=== PATIENT | female | born 1980 | race Caucasian/White ===

== ENCOUNTER 2020-01-11 13:41 | Outpatient (CLI) | payer MEDICARE, MEDICAID, SELFPAY ==
--- NOTE | 2020-01-11 13:49 | MR_ITS ---
WS: [id number] MRI BRAIN WITH HIGH-RESOLUTION IMAGING THROUGH THE INTERNAL AUDITORY CANALS WITHOUT AND WITH CONTRAST HISTORY: TINNITUS LEFT EAR COMPARISON: None available. TECHNIQUE: Multiplanar, multisequence imaging is performed through the brain. Additional 3 mm imaging performed in multiple planes through the internal auditory canal. Postcontrast imaging with 17 ml's of Prohance. No acute intracranial hemorrhage, midline shift, edema or mass effect. No significant atrophy or chronic ischemic changes. Normal manning-white matter differentiation. Ventricles and extra-axial spaces are normal. No inferior displacement of cerebellar tonsils. Clivus and pituitary gland are normal. Internal and external auditory canals: Unremarkable. Cranial nerves VII and VIII complexes: Unremarkable. No enhancement or mass. Cerebellopontine angles: Normal. Paranasal sinuses: Normal. Mastoid air cells: Normal. Calvarium and scalp: Normal. Visualized [place] and dural venous sinuses demonstrate no abnormality. MR/MR iac's wo/w con* [id number] IMPRESSION: Normal MRI IACs.
== END 2020-01-11 13:42 | disposition home or self-care (01) ==
LOC: RADSHAW 13:47
PROVIDERS: PCP Family Medicine; Visit Provider Specialist
DX: H93.12 Tinnitus, left ear (principal)
CPT/HCPCS: 70553; A9579

== ENCOUNTER → 2022-12-13 10:21 | Outpatient (BNVA) | payer MEDICARE, MEDICAID, OTHER, SELFPAY | PROVIDERS: PCP Family Medicine; Visit Provider Podiatrist Foot & Ankle Surgery | DX: B35.1 Tinea unguium (principal); G62.9 Polyneuropathy, unspecified; E11.42 Type 2 diabetes mellitus with diabetic polyneuropathy; M21.612 Bunion of left foot; M21.611 Bunion of right foot | CPT/HCPCS: 99203 ==

== ENCOUNTER → 2023-04-01 09:06 | Outpatient (BNVA) | payer MEDICARE, MEDICAID, SELFPAY | PROVIDERS: PCP Family Medicine; Visit Provider Podiatrist Foot & Ankle Surgery | DX: B35.1 Tinea unguium (principal); G62.9 Polyneuropathy, unspecified; E11.42 Type 2 diabetes mellitus with diabetic polyneuropathy; M21.611 Bunion of right foot; M21.612 Bunion of left foot | CPT/HCPCS: 99213 ==

== ENCOUNTER 2023-09-22 13:24 | Inpatient (IN) | payer MEDICARE, MEDICAID, SELFPAY ==
--- NOTE | 2023-09-22 13:25 | W.ED.PSYCHS ---
HPI - Psych General: Chief Complaint: Psychiatric Symptoms Stated Complaint: si Time Seen by Provider: 09/22/23 13:24 Source: patient Mode of arrival: ambulatory Limitations: no limitations History of Present Illness: Patient is a 43-year-old female who presents to the ED today at the request of her psychiatric counselor for worsening depression and suicidal ideations. Patient tells me that she has a lot going on right now. She states she is struggling with some coworkers at work as well as within her residential facility. She states she has ran into some financial issues regarding her Social Security. Patient feels like her depression is worsening and she is now starting to have some suicidal thoughts. No specific plan. She has a longstanding history of schizophrenia. She chronically has hallucinations. MD complaint: suicidal ideation, feels depressed and other (hallucinations ) Onset (ago): day(s) Associated symptoms: Reports auditory hallucinations, visual hallucinations, depression and suicidal ideation; Deny homicidal ideation Review of Systems Const: Denies: fever(s) or chills Card: Denies: chest pain, palpitations, lightheadedness or syncope Resp: Denies: dyspnea GI: Denies: abdominal pain, nausea, vomiting or diarrhea Skin/Breast: Denies: rash Neuro: Denies: headache(s) Psych: Reports: anxiety, depression, hopelessness, visual hallucinations, auditory hallucinations and suicidal ideation; Denies: homicidal ideation [facility] ED PFSH: Medical History Depression Lives in assisted living facility Intellectual disability Anxiety PTSD (post-traumatic stress disorder) Psychiatric care Physical Exam Const: COMMON NORMALS: no acute distress, patient oriented x3, alert and well nourished GENERAL APPEARANCE: cooperative and well kempt Resp: COMMON NORMALS: normal respiratory effort and clear to auscultation bilaterally AUSCULTATION: clear to auscultation bilaterally Cardio: COMMON NORMALS: regular rate and regular rhythm RATE: regular rate RHYTHM: regular rhythm Neuro: COMMON NORMALS: patient oriented x3 SENSORIUM/ORIENTATION: Yes alert Psych: COMMON NORMALS: mental status grossly normal, Normal thought process present, cooperative, normal affect, speech normal and activity/motor behavior normal APPEARANCE: Yes grossly normal and Yes well kempt ATTITUDE: Yes calm ACTIVITY/MOTOR BEHAVIOR: Yes appropriate eye contact and No psychomotor agitation SPEECH: Yes normal speech MOOD & AFFECT: Yes tearful THOUGHT PROCESS: Normal thought process present THOUGHT CONTENT: Yes Normal thought content present and Yes Suicidality present ATTENTION/CONCENTRATION: Yes attention grossly intact MEMORY/COGNITION: Yes memory grossly intact and Yes cognition grossly intact INSIGHT: Good insight present (Psych) JUDGEMENT: Good judgement present (Psych) Course Consultations: Consultation #1: Dr. Mast-accepts to NPU Vital Signs: Vital signs: Vital Signs Temperature 98.2 F 09/22/23 14:54 Pulse Rate 73 09/22/23 14:54 Blood Pressure 142/95 09/22/23 14:54 Pulse Oximetry 100 09/22/23 14:54 Oxygen Delivery Me thod Room Air 09/22/23 13:26 MDM - Psych Medical Decision Making Patient will be admitted to NPU to Dr. Mast for treatment and evaluation of her worsening depression, suicidal ideations, hallucinations. She is voluntary at this time. Lab Data 09/22/23 13:39 09/22/23 13:39 Laboratory Results WBC 13.93 10^3/uL (3.29-11.43) H 09/22/23 13:39 RBC 4.95 10^6/uL (3.85-5.65) 09/22/23 13:39 Hgb 13.90 g/dL (11.27-16.99) 09/22/23 13:39 Hct 43.4 % (36-47) 09/22/23 13:39 MCV 87.7 fl (85-98) 09/22/23 13:39 MCH 28.1 pg (27-33) 09/22/23 13:39 MCHC 32.0 g/dL (30-55) 09/22/23 13:39 RDW 14.5 % (12.1-15.1) 09/22/23 13:39 Plt Count 351 10^3/cmm (157-399) 09/22/23 13:39 MPV 11.3 fL (7.4-10.4) H 09/22/23 13:39 Neut % (Auto) 56.5 % 09/22/23 13:39 Lymph % (Auto) 35.4 % 09/22/23 13:39 [place] % (Auto) 6.2 % 09/22/23 13:39 Eos % (Auto) 1.3 % 09/22/23 13:39 Baso % (Auto) 0.4 % 09/22/23 13:39 Neut # (Auto) 7.86 10^3/uL (1.8-7.7) H 09/22/23 13:39 Lymph # (Auto) 4.9 10^3/uL (0.8-4.8) H 09/22/23 13:39 [place] # (Auto) 0.9 10^3/uL (0.2-0.9) 09/22/23 13:39 Eos # (Auto) 0.2 10^3/uL (0.0-0.8) 09/22/23 13:39 Baso # (Auto) 0.1 10^3/uL (0.0-0.1) 09/22/23 13:39 Nucleated RBC % (auto) 0 % 09/22/23 13:39 Nucleated RBCs # 0.0 /100WBC 09/22/23 13:39 Sodium 139 mmol/L (136-145) 09/22/23 13:39 Potassium 5.4 mmol/L (3.5-5.1) H 09/22/23 13:39 Chloride 102 mmol/L (98-107) 09/22/23 13:39 Carbon Dioxide 25 mmol/L (22-29) 09/22/23 13:39 Anion Gap 17.4 (5-19) 09/22/23 13:39 BUN 17 mg/dL (6-20) 09/22/23 13:39 Creatinine 0.7 mg/dL (0.5-0.9) 09/22/23 13:39 GFR Calculation 90.5 mL/min (90-130) 09/22/23 13:39 Glucose 95 mg/dL (65-115) 09/22/23 13:39 Calculated Osmolality 289 mOsm/kg (285-295) 09/22/23 13:39 Calcium 9.8 mg/dL (8.5-10.5) 09/22/23 13:39 Total Bilirubin 0.2 mg/dL (0.15-1.2) 09/22/23 13:39 AST 26 U/L (0-32) 09/22/23 13:39 ALT 29 U/L (0-33) 09/22/23 13:39 Alkaline Phosphatase 131 U/L (35-105) H 09/22/23 13:39 Total Protein 7.6 g/dL (6.6-8.7) 09/22/23 13:39 Albumin 4.5 g/dL (3.5-5.2) 09/22/23 13:39 Globulin 3.1 g/dL (1.3-4.6) 09/22/23 13:39 HCG, Qual Negative (Negative) 09/22/23 13:39 Salicylates < 0.3 mg/dL (3-10) L 09/22/23 13:39 Urine Opiates Screen Negative ng/mL (Negative) 09/22/23 13:31 Acetaminophen < 5.0 ug/mL (10-30) L 09/22/23 13:39 Ur Barbiturates Screen Negative ng/mL (Negative) 09/22/23 13:31 Ur Phencyclidine Scrn Negative ng/mL (Negative) 09/22/23 13:31 Ur Amphetamines Screen Negative ng/mL (Negative) 09/22/23 13:31 U Benzodiazepines Scrn Negative ng/mL (Negative) 09/22/23 13:31 Urine Cocaine Screen Negative ng/mL (Negative) 09/22/23 13:31 U Marijuana (THC) Screen Negative ng/mL (Negative) 09/22/23 13:31 Ethyl Alcohol < 10 mg/dL (0-10) 09/22/23 13:39 No radiology studies performed this visit Discharge Plan Discharge Patient Disposition: Admitted As Inpatient Admit Provider: Jose Mast Clinical Impression: Depression, Suicidal ideation Condition: Stable Coding Level of Care Code ED Twisthand for Melvi Adame
[2023-09-22 13:26] VITALS: BP 142/95; PULSE 73; TEMP 36.8; O2SAT 100; BMI 33.0
[2023-09-22 13:49] LABS: Basophils # 0.1 10^3/uL (0.0-0.1); Basophils % 0.4 %; Eosinophils # 0.2 10^3/uL (0.0-0.8); Eosinophils % 1.3 %; Hematocrit 43.4 % (36-47); Lymphocytes # 4.9 10^3/uL (0.8-4.8); Lymphocytes % 35.4 %; Mean Corpuscular Hemoglobin 28.1 pg (27-33); Mean Corpuscular Volume 87.7 fl (85-98); Mean Platelet Volume 11.3 fL (7.4-10.4); Monocytes # 0.9 10^3/uL (0.2-0.9); Monocytes % 6.2 %; Neutrophils # 7.86 10^3/uL (1.8-7.7); Neutrophils % 56.5 %; Nucleated Red Blood Cells % 0 %; Platelet Count 351 10^3/cmm (157-399); Red Blood Count 4.95 10^6/uL (3.85-5.65); Red Cell Distribution Width 14.5 % (12.1-15.1); White Blood Count 13.93 10^3/uL (3.29-11.43)
[2023-09-22 13:52] LABS: Amphetamines Screen Urine Negative (Negative); Barbiturates Screen Urine Negative (Negative); Benzodiazepines Screen Urine Negative (Negative); Cocaine Screen Urine Negative (Negative); Opiate Screen Urine Negative (Negative); PCP Screen Urine Negative (Negative); THC Screen Urine Negative (Negative)
[2023-09-22 14:02] LABS: Alanine Aminotransferase 29 U/L (0-33); Albumin Level 4.5 g/dL (3.5-5.2); Alkaline Phosphatase 131 U/L (35-105); Aspartate Amino Transferase 26 U/L (0-32); Blood Urea Nitrogen 17 mg/dL (6-20); Calcium 9.8 mg/dL (8.5-10.5); Carbon Dioxide 25 mmol/L (22-29); Chloride 102 mmol/L (98-107); Creatinine Clr Calc Pharmacy 120.5533; Globulin 3.1 g/dL (1.3-4.6); Glomerular Filtration Rate 90.5 mL/min (90-130); Glucose 95 mg/dL (65-115); Osmolality Calculated 289 mOsm/kg (285-295); Sodium 139 mmol/L (136-145); Total Bilirubin 0.2 mg/dL (0.15-1.2); Total Protein 7.6 g/dL (6.6-8.7)
[2023-09-22 14:04] LABS: Acetaminophen < 5.0 ug/mL (10-30); Alcohol Level < 10 mg/dL (0-10); Anion Gap 17.4 (5-19); Potassium 5.4 mmol/L (3.5-5.1); Salicylate < 0.3 mg/dL (3-10)
[2023-09-22 14:05] LABS: HCG, Serum Qual Negative (Negative)
--- NOTE | 2023-09-22 14:32 | PC.PHAR ---
PT IS FROM [facility]
[2023-09-22 14:54] VITALS: BP 142/95; BP 142/96; PULSE 106; PULSE 73; RESP 16; TEMP 36.8; TEMP 36.9; O2SAT 100; O2SAT 97
--- NOTE | 2023-09-22 14:55 | PC.NURSE ---
Transported to NPU Patient transported to NPU at this time via wheelchair by this nurse and Drea Soto RN. Name and verified prior to transfer. Patient introduced to the PATIENT SERVICES REPRESENTATIVE and charge nurse in NPU. No issues during transfer.
[2023-09-22] MEDS: acetaminophen 325 mg Tablet 650 MG PO ×2 (16:47→22:32)
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
[2023-09-22 19:48] LABS: Glucose Point of Care 109 mg/dL (70-110)
[2023-09-22] MEDS: ibuprofen 600 mg Tablet PO (20:47)
[2023-09-22 22:00] VITALS: BP 103/66; PULSE 71; RESP 18; TEMP 37.2; O2SAT 97
[2023-09-22] MEDS: trazodone 50 mg Tablet PO (22:32)
[2023-09-23] MEDS: ibuprofen 600 mg Tablet PO (05:07)
[2023-09-23 06:00] VITALS: BP 128/94; PULSE 110; RESP 18; TEMP 36.5; O2SAT 98
[2023-09-23] MEDS: blistex lip oint 7 gm Tube 1 APPLIC TOPICAL (07:37)
[2023-09-23 07:47] LABS: Glucose Point of Care 104 mg/dL (70-110)
[2023-09-23] MEDS: acetaminophen 325 mg Tablet 650 MG PO ×2 (08:57→17:26)
--- NOTE | 2023-09-23 09:30 | PC.NURSE ---
During assessmnt, patient stated that she is having life stressors that is causing her to feel depressed and have suicidal thoughts. Patient says that on the unit, she is not having SI because she has people she can talk to (staff and other patients), whereas at [place], she is isolated. Patient endorses occassional AVH, no command voices.
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
[2023-09-23] MEDS: sertraline 100 mg Tablet 200 MG PO (12:38)
[2023-09-23 12:40] LABS: Glucose Point of Care 136 mg/dL (70-110)
[2023-09-23 13:54] VITALS: BP 136/101; PULSE 111; RESP 18; TEMP 37; O2SAT 90
[2023-09-23] MEDS: gabapentin 300 mg Capsule PO ×2 (14:00→20:44)
[2023-09-23] MEDS: OLANZapine 5 mg ODT PO (16:42)
[2023-09-23] MEDS: sertraline 50 mg Tablet PO (16:42)
--- NOTE | 2023-09-23 17:13 | PC.NURSE ---
Patient reporting a feeling of panic and dizziness. This nurse checked VS. VS were 164/101, [place] 73, 100% RA, 16 RR. This nurse administered zyprexa 5mg ODT. Patient tearful, stating that she recently lost a friend, she is lonely, and that she has prayed for years for somebody to love her. This nurse used therapeutic listening techniques. patient was able to calm down. Will continue to monitor patient. Patient states that she has a hx of high blood pressure; per patient medication list faxed from Dr. Dooley office, patient is not currently on a HTN medication. Dr. Mast notified.
[2023-09-23] MEDS: famotidine 20 mg Tablet 40 MG PO (17:25)
--- NOTE | 2023-09-23 17:30 | ECG_ITS ---
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 Measurements Intervals [place] Rate: 72 P: 61 MA: 131 QRS: 42 QRSD: 94 T: 22 QT: 382 QTc: 420 Interpretive Statements SINUS RHYTHM POSSIBLE LEFT ATRIAL ENLARGEMENT [-0.1mV P-WAVE IN V1/V2] NONSPECIFIC T-WAVE ABNORMALITY No previous ECG available for comparison Electronically Signed On 09-23-2023 23:50:03 CDT by Chastity Mackay M.D. [id number]
--- NOTE | 2023-09-23 17:31 | PC.NURSE ---
Patient reporting chest pain located substernally that radiates down left arm. Dr. Mast notified. This nurse ordered stat EKG, troponin series, and nitro stat 0.4mg per Dr. Mast orders. Patient currently in dayroom having dinner.
--- NOTE | 2023-09-23 17:44 | PC.NURSE ---
Dr. Mast told this nurse to restart patient'slisnopril-hctz 20-12.5 that is in her EMar; patient had a 5-day supply filled on 08/28/23. This nurse asked to give now or hold, Dr. Mast stated, wait till later, maybe not tomorrow.
[2023-09-23] MEDS: nitroglycerin 0.4 mg sublingual Tablet 0.400000000000000022 MG SUBLINGUAL (18:01)
--- NOTE | 2023-09-23 18:08 | PC.NURSE ---
Patient's BP at 1801: 170/98. Patient reporting chest pain. Administered nitrostat 0.4mg ODT to patient. Patient's blood taken by lab during this time. This nurse called RT to check on status of EKG.
--- NOTE | 2023-09-23 18:23 | PC.NURSE ---
Patient's BP checked at 1817 following bedside EKG. VS: 131/84, 99% RA, HR 74. Patient reports decreased chest pain.
[2023-09-23 18:46] LABS: Troponin(5th) Baseline < 6 ng/L (0-10)
--- NOTE | 2023-09-23 19:30 | ECG_ITS ---
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 Measurements Intervals [place] Rate: 82 P: 47 TN: 121 QRS: 34 QRSD: 94 T: 34 QT: 392 QTc: 458 Interpretive Statements SINUS RHYTHM POSSIBLE RIGHT VENTRICULAR CONDUCTION DELAY [RSR (QR) IN V1/V2] Compared to ECG 09/23/2023 18:13:44 T-wave abnormality no longer present Electronically Signed On 09-25-2023 0:14:41 CDT by Chastity Mackay M.D. [id number]
[2023-09-23 19:44] VITALS: BP 130/78; PULSE 75; RESP 18; TEMP 36.4; O2SAT 100
[2023-09-23 20:40] LABS: Glucose Point of Care 138 mg/dL (70-110)
[2023-09-23] MEDS: quetiapine 25 mg Tablet 100 MG PO (20:44)
[2023-09-23 21:15] LABS: Troponin 5 2HR Delta 0.00001 ABS# (0-10)
--- NOTE | 2023-09-24 00:24 | PC.RESP ---
RT went into room to do scheduled EKG, patient refused to turn on her back, stating it hurt to lie down flat on back. Patient also would not put arms down to her side. Did not allow EKG to be performed.
[2023-09-24 01:09] LABS: Troponin 5 6HR Delta 0.00001 ng/L (0-12)
[2023-09-24 06:00] VITALS: BP 152/95; PULSE 77; RESP 17; TEMP 36.9; O2SAT 98
[2023-09-24] MEDS: ibuprofen 600 mg Tablet PO ×2 (06:31→21:36)
[2023-09-24 07:53] LABS: Glucose Point of Care 94 mg/dL (70-110)
[2023-09-24] MEDS: acetaminophen 325 mg Tablet 650 MG PO ×2 (09:09→18:22)
[2023-09-24] MEDS: hydroCHLOROthiazide 25 mg Tablet 12.5 MG PO (09:09)
[2023-09-24] MEDS: lisinopril 20 mg Tablet PO (09:09)
[2023-09-24] MEDS: polyethylene glycol 3350 Pkt 17 gm PO (09:10)
[2023-09-24] MEDS: gabapentin 300 mg Capsule PO ×3 (09:10→21:37)
[2023-09-24] MEDS: famotidine 20 mg Tablet 40 MG PO ×2 (09:10→18:23)
[2023-09-24] MEDS: sertraline 100 mg Tablet 250 MG PO (09:10)
[2023-09-24] MEDS: hyDROXYzine 25 mg Capsule 50 MG PO ×2 (09:11→21:36)
--- NOTE | 2023-09-24 09:41 | PC.NURSE ---
UP IN DAY ROOM EATING BREAKFAST. DENIES SI/HI AND AVH AT THIS TIME. REPORTS CHRONIC PAIN, I THINK ITS FIBROMYALGIA. PT IS ON SCHEDULED TYLENOL AND DID RECEIVE IT THIS MORNING, RATES PAIN EVERYWHERE /10. REPORTS SHE SLEPT WELL LAST NIGHT. RATES DEPRESSION 10 AND ANXIETY 2/10. PT THEN CAME UP TO NURSES STATION 30 MINUTES LATES REPORTING ANXIETY /10 AND REQUESTING PRN MEDS PLEASE. PT WAS GIVEN VISTARIL 50 MG ORDERED FOR INCREASED ANXIETY. PT IS PLEASANT AND COOPERATIVE, IS OBSERVED TO HAVE SOMATIC BEHAVIORS AT TIMES. PT IS INTERACTIVE WITH PEERS AND STAFF. ALL QUESTIONS ANSWERED AND SUPPORT VOICED.
[2023-09-24 14:00] VITALS: BP 128/81; PULSE 81; RESP 16; TEMP 36.8; O2SAT 99
--- NOTE | 2023-09-24 15:01 | P.NPUPN_ITS ---
Subjective NPU 2 Subjective: Patient presented today reporting that she was feeling a bit better. She reports that she is starting to have optimism about things moving forward. She reports that the medication increases have been effective and we discussed working with the social work team with likely discharge in the next 48 hours. She denied any side effects of the medication. Mental Status Exam 2 MSE Comments: This is an obese white female in hospital scrubs with adequate grooming and eye contact. No abnormal movements except for mild psychomotor retardation. Cooperative with exam in mild to moderate distress. Speech was decreased rate and volume. Mood described a little better, Affect congruent. Thought process organized. Thought content: Patient denied suicidal or homicidal ideation, there are no delusions reported or noted, she denied any auditory or visual hallucinations. She reports having episodes of acting out due to stress and pain. She also reports having problems with memory, which she has to reteach herself how to use her cell phone. She also reports having a lot of crying, sadness, and spending most of her time in her room. She also reports having problems with OCD and paranoia. Attention and concentration appeared intact and memory was mostly reliable but none were formally tested. She is alert and oriented x3. Insight and judgment appear limited impulse control appears impaired. Intellectual ability appears limited. Vitals/I&O/Wt Last Vital Signs Temp 98.3 F 09/24/23 14:00 Pulse 81 09/24/23 14:00 Resp 16 09/24/23 14:00 BP 128/81 09/24/23 14:00 Pulse Ox 99 09/24/23 14:00 O2 Del Method Room Air 09/24/23 06:00 Data NPU 09/22/23 13:39 09/22/23 13:39 A&P Assessment and plan (1) PTSD (post-traumatic stress disorder): (2) Anxiety: (3) Lives in assisted living facility: (4) Depression: (5) Suicidal ideation: (6) Borderline intellectual functioning: Plan This is a 43-year-old white female with a long history of mental health issues and previous hospitalization last time here was about 12 years ago. She presented to her recent outpatient appointment in the past couple of weeks reporting that she is still struggling with her depression and suicidal thoughts and the adjustment of medication did not prevent her continued decompensation leading to this hospitalization. 1. Continue current medication except, increase Zoloft to 250 mg p.o. daily and Seroquel to 100 mg p.o. nightly. 2. Continue every 15 minute checks for safety. 3. Encourage individual, group and milieu therapy. 6. Obtain collateral information. Involuntary Hold Information 2 96 Hour Hold: 96 Hour Involuntary Admission: No Attestations NPU 2 Medical Necessity Statement*: Inpatient hospitalization is medically necessary and the clinically appropriate intervention at this time. We will monitor medications and make changes as indicated. Likely length of stay 2-4 days. Coding Level of Care Code Acute Code for g Fwd Diagnoses PTSD (post-traumatic stress disorder) F43.10 Anxiety F41.9 Lives in assisted living facility Z59.3 Depression F32.A Suicidal ideation R45.851 Borderline intellectual functioning R41.83
[2023-09-24 19:59] VITALS: BP 137/82; PULSE 89; RESP 18; TEMP 36.9; O2SAT 100
[2023-09-24] MEDS: trazodone 50 mg Tablet PO (21:36)
[2023-09-24] MEDS: quetiapine 25 mg Tablet 100 MG PO (21:36)
[2023-09-25 06:00] VITALS: BP 117/73; PULSE 78; RESP 16; O2SAT 98
[2023-09-25 07:55] LABS: Glucose Point of Care 114 mg/dL (70-110)
[2023-09-25] MEDS: acetaminophen 325 mg Tablet 650 MG PO (09:26)
[2023-09-25] MEDS: hyDROXYzine 25 mg Capsule 50 MG PO (09:26)
[2023-09-25] MEDS: sertraline 100 mg Tablet 250 MG PO (09:26)
[2023-09-25] MEDS: lisinopril 20 mg Tablet PO (09:26)
[2023-09-25] MEDS: famotidine 20 mg Tablet 40 MG PO (09:26)
[2023-09-25] MEDS: gabapentin 300 mg Capsule PO ×2 (09:26→15:36)
[2023-09-25] MEDS: hydroCHLOROthiazide 25 mg Tablet 12.5 MG PO (09:26)
[2023-09-25] MEDS: polyethylene glycol 3350 Pkt 17 gm PO (09:27)
--- NOTE | 2023-09-25 10:05 | PC.NURSE ---
UP IN DAY ROOM EATING BREAKFAST. PTS SPEECH IS RAPID, EXCESSIVE AND PRESSURED/ANIMATED. PT DENIES SI/HI AND AVH AT THIS TIME. RATES ANXIETY 8/10 AND DEPRESSION 7/10. PT WAS GIVEN VISTARIL 50 MG ORDERED FOR INCREASED ANXIETY. PT SPOKE WITH NURSE AT LENGTH THIS AM AND MADE SEVERAL COMMENTS OF HOSPIAL CLEANILESS, RN OFFERED TO PLACE WORK ORDER TO HAVE EVS CLEAN BATHROOM. PT WAS HAPPY WITH SUGGESTION. ORDERS PLACED. PT IS GUARDED WITH SOME STAFF AT TIMES AND STATES SHE IS UNTRUSTING OF OTHERS. RATES PAIN 6/10 IN BACK, SCHEDULED TYLENOL WAS GIVEN. ALL QUESTIONS ANSWERED AND SUPPORT VOICED.
[2023-09-25 14:00] VITALS: BP 109/73; PULSE 98; RESP 16; TEMP 36.8; O2SAT 99
--- NOTE | 2023-09-25 14:09 | P.NPUDS_ITS ---
Diagnoses at Discharge Discharge Diagnosis (1) PTSD (post-traumatic stress disorder): Status: Acute (2) Anxiety: Status: Acute (3) Lives in assisted living facility: Status: Acute (4) Depression: Status: Acute (5) Suicidal ideation: Status: Acute (6) Borderline intellectual functioning: Status: Acute Reason for Visit Reason for Visit: si Involuntary Hold Information 96 Hour Hold: 96 Hour Involuntary Admission: No Mental Status Exam MSE Comments: This is an obese white female in hospital scrubs with adequate grooming and eye contact. No abnormal movements except for mild psychomotor retardation. Cooperative with exam in mild to moderate distress. Speech was decreased rate and volume. Mood described a little better, Affect congruent. Thought process organized. Thought content: Patient denied suicidal or homicidal ideation, there are no delusions reported or noted, she denied any auditory or visual hallucinations. She reports having episodes of acting out due to stress and pain. She also reports having problems with memory, which she has to reteach herself how to use her cell phone. She also reports having a lot of crying, sadness, and spending most of her time in her room. She also reports having problems with OCD and paranoia. Attention and concentration appeared intact and memory was mostly reliable but none were formally tested. She is alert and oriented x3. Insight and judgment appear limited impulse control appears impaired. Intellectual ability appears limited. Discharge Data Studies Completed and Pending: Laboratory Results WBC 13.93 10^3/uL (3. 29-11.43) H 09/22/23 13:39 RBC 4.95 10^6/uL (3.8 5-5.65) 09/22/23 13:39 Hgb 13.90 g/dL (11.27 -16.99) 09/22/23 13:39 Hct 43.4 % (36-47) 09/22/23 13:39 MCV 87.7 fl (85-98) 09/22/23 13:39 MCH 28.1 pg (27-33) 09/22/23 13:39 MCHC 32.0 g/dL (30-55) 09/22/23 13:39 RDW 14.5 % (12.1-15.1 ) 09/22/23 13:39 Plt Count 351 10^3/cmm (157 -399) 09/22/23 13:39 MPV 11.3 fL (7.4-10.4 ) H 09/22/23 13:39 Neut % (Auto) 56.5 % 09/22/23 13:39 Lymph % (Auto) 35.4 % 09/22/23 13:39 [place] % (Auto) 6.2 % 09/22/23 13:39 Eos % (Auto) 1.3 % 09/22/23 13:39 Baso % (Auto) 0.4 % 09/22/23 13:39 Neut # (Auto) 7.86 10^3/uL (1.8 -7.7) H 09/22/23 13:39 Lymph # (Auto) 4.9 10^3/uL (0.8- 4.8) H 09/22/23 13:39 [place] # (Auto) 0.9 10^3/uL (0.2- 0.9) 09/22/23 13:39 Eos # (Auto) 0.2 10^3/uL (0.0- 0.8) 09/22/23 13:39 Baso # (Auto) 0.1 10^3/uL (0.0- 0.1) 09/22/23 13:39 Nucleated RBC % (a uto) 0 % 09/22/23 13:39 Nucleated RBCs # 0.0 /100WBC 09/22/23 13:39 Sodium 139 mmol/L (136-1 45) 09/22/23 13:39 Potassium 5.4 mmol/L (3.5-5 .1) H 09/22/23 13:39 Chloride 102 mmol/L (98-10 7) 09/22/23 13:39 Carbon Dioxide 25 mmol/L (22-29) 09/22/23 13:39 Anion Gap 17.4 (5-19) 09/22/23 13:39 BUN 17 mg/dL (6-20) 09/22/23 13:39 Creatinine 0.7 mg/dL (0.5-0. 9) 09/22/23 13:39 GFR Calculation 90.5 mL/min (90-1 30) 09/22/23 13:39 Glucose 95 mg/dL (65-115) 09/22/23 13:39 POC Glucose 114 mg/dL (70-110 ) H 09/25/23 07:49 Calculated Osmolal ity 289 mOsm/kg (285- 295) 09/22/23 13:39 Calcium 9.8 mg/dL (8.5-10 .5) 09/22/23 13:39 Total Bilirubin 0.2 mg/dL (0.15-1 .2) 09/22/23 13:39 AST 26 U/L (0-32) 09/22/23 13:39 ALT 29 U/L (0-33) 09/22/23 13:39 Alkaline Phosphata se 131 U/L (35-105) H 09/22/23 13:39 Troponin T Baselin e < 6 ng/L (0-10) 09/23/23 18:10 Troponin T 120 Min saxman 6.00 ng/L (0-10) 09/23/23 20:35 Delta Troponin T 0.90662 ABS# (0-1 0) 09/23/23 20:35 Troponin T Hi Sens 6Hr 6.00 ng/L (0-10) 09/24/23 00:36 Troponin T Hi Sens 6Hr Delta 0.24435 ng/L (0-1 2) 09/24/23 00:36 Total Protein 7.6 g/dL (6.6-8.7 ) 09/22/23 13:39 Albumin 4.5 g/dL (3.5-5.2 ) 09/22/23 13:39 Globulin 3.1 g/dL (1.3-4.6 ) 09/22/23 13:39 HCG, Qual Negative (Negati ve) 09/22/23 13:39 Salicylates < 0.3 mg/dL (3-10 ) L 09/22/23 13:39 Urine Opiates Scre en Negative ng/mL (N egative) 09/22/23 13:31 Acetaminophen < 5.0 ug/mL (10-3 0) L 09/22/23 13:39 Ur Barbiturates Sc reen Negative ng/mL (N egative) 09/22/23 13:31 Ur Phencyclidine S crn Negative ng/mL (N egative) 09/22/23 13:31 Ur Amphetamines Sc reen Negative ng/mL (N egative) 09/22/23 13:31 U Benzodiazepines Scrn Negative ng/mL (N egative) 09/22/23 13:31 Urine Cocaine Scre en Negative ng/mL (N egative) 09/22/23 13:31 U Marijuana (THC) Screen Negative ng/mL (N egative) 09/22/23 13:31 Ethyl Alcohol < 10 mg/dL (0-10) 09/22/23 13:39 Vitals: Last Vital Signs Temp 98.4 F 09/24/23 19:59 Pulse 78 09/25/23 06:00 Resp 16 09/25/23 06:00 BP 117/73 09/25/23 06:00 Pulse Ox 98 09/25/23 06:00 O2 Del Method Room Air 09/24/23 19:59 Discharge Plan Discharge Patient Disposition: Home Condition: Stable Prescriptions: New quetiapine 25 mg Tablet 100 mg PO BEDTIME 30 Days Qty: 120 1RF sertraline 100 mg Tablet 250 mg PO DAILY 30 Days Qty: 75 1RF hydroxyzine pamoate 25 mg Capsule 50 mg PO Q6H PRN (Reason: Anxiety) 30 Days Qty: 120 1RF Continued lisinopril-hydrochlorothiazide 20-12.5 mg tablet 1 tab PO DAILY polyethylene glycol 3350 [Miralax] 17 gram/dose powder 4 g PO DAILY calcium carbonate 500 mg calcium (1,250 mg) tablet 500 mg PO TID famotidine 40 mg tablet 40 mg PO BID multivitamin Tablet 1 tab PO DAILY gabapentin 300 mg capsule 300 mg PO TID trazodone 100 mg tablet 100 mg PO BEDTIME meclizine 25 mg Tablet 25 mg PO Q6H PRN (Reason: Dizziness) ibuprofen 600 mg Tablet 600 mg PO BID Flonase 50 mcg/actuation [place],Suspension 2 spray INTRANASAL DAILY PRN (Reason: ALLERGIES) Rx Instructions: administer into each nostril medroxyprogesterone 150 mg/mL Syringe 150 mg IM .Q12W Nasogel 0.9 % Gel 1 ea INTRANASAL DAILY Fiber Gummies 2 gram Tablet,Chewable 2 g PO DAILY acetaminophen 325 mg Tablet 650 mg PO Q6H PRN (Reason: PAIN OR ELEVATED TEMP) Nitrostat 0.4 mg Tablet, Sublingual 0.4 mg SUBLINGUAL Q5M PRN (Reason: Chest Pain) Rx Instructions: do not exceed 3 doses per episode albuterol sulfate 90 mcg/actuation HFA aerosol inhaler 1 - 2 puff INHALATION Q6H PRN (Reason: Shortness Of Breath) Nasal Decongestant (oxymetazl) 0.05 % [place],Non-Aerosol 2 - 3 spray INTRANASAL Q12H PRN (Reason: NASAL BLEEDING) [place] Nasal 0.65 % Aerosol,[place] 2 - 3 spray INTRANASAL QID PRN (Reason: CONGESTION/DRAINAGE) Discontinued sertraline 100 mg tablet 200 mg PO DAILY 90 Days Qty: 180 0RF acetaminophen 325 mg Tablet 650 mg PO BID Seroquel 50 mg tablet 50 mg PO BEDTIME No Action (DME) diabetic shoes with 3 inserts See Rx Instructions .Route .MEDSUPPLY Qty: 1 0RF Rx Instructions: As directed to the [facility] Discharge Orders: Discharge Order (Routine); Ordered 09/25/23 Ordered By: Jose Mast Referrals: [facility]UR[facility] [Other] - 10/07/23 11:00 am ([facility]) Tom Dooley [Primary Care Provider] - Discharge Diet: Regular Discharge Activity: Resume usual activity Patient Instructions: Opioid Safety Discharge Attestations NPU Time Spent in Discharge Care*: less than 30 min Specific Discharge Activities: Specific discharge activities: educating patient, discussing with child welfare caseworker/social workers/dc planners, documenting/other paperwork and evaluating patient/reviewing data Coding Level of Care Code Acute Code for Chg Fwd Diagnoses PTSD (post-traumatic stress disorder) F43.10 Anxiety F41.9 Lives in assisted living facility Z59.3 Depression F32.A Suicidal ideation R45.851 Borderline intellectual functioning R41.83
[2023-09-25 14:40] VITALS: BP 117/73; PULSE 78; RESP 16; TEMP 36.8; O2SAT 98
--- NOTE | 2023-09-25 15:31 | PC.NURSE ---
REPORT CALLED TO PHYLLIS AT [facility] IN [place] FOR PT TO GO BACK TO [facility]. ALL QUESTIONS ANSWERED AND SUPPORT VOICED. PT TO BE DISCHARGED AT APPROXIMATELY 1600. PT HAS SIGNED ALL PAPERWORK.
--- NOTE | 2023-09-25 16:35 | DCPLANNER ---
IMM was printed and given to pt and copy placed in pts file.
--- NOTE | 2023-09-25 16:45 | DCPLANNER ---
IMM faxed to [facility] for pt and copy placed in file.
== END 2023-09-25 15:52 | disposition home or self-care (01) | DRG 881 ==
LOC: ER 13:50 → NP 14:47
PROVIDERS: Admitting Provider Psychiatry & Neurology Psychiatry; Emergency Provider Physician Assistant; PCP Family Medicine; Visit Provider Psychiatry & Neurology Psychiatry
DX: F32.A Depression, unspecified (principal); R45.851 Suicidal ideations; F41.9 Anxiety disorder, unspecified; F43.10 Post-traumatic stress disorder, unspecified; R41.83 Borderline intellectual functioning; E11.9 Type 2 diabetes mellitus without complications; I10 Essential (primary) hypertension; E66.9 Obesity, unspecified; G62.9 Polyneuropathy, unspecified; Z59.86 Financial insecurity; Z68.33 Body mass index [BMI] 33.0-33.9, adult; Z81.8 Family history of other mental and behavioral disorders; Z62.810 Personal history of physical and sexual abuse in childhood
CPT/HCPCS: 36415; 36416; 80053; 80306; 80307; 82962; 84484; 84703; 85025; 93005; 97150; 97165; 99285

== ENCOUNTER → 2023-10-10 13:37 | Outpatient (BNVA) | payer MEDICARE, MEDICAID, OTHER, SELFPAY | PROVIDERS: PCP Family Medicine; Visit Provider Nurse Practitioner | DX: Z79.899 Other long term (current) drug therapy (principal) | CPT/HCPCS: 80061; 83036 ==

== ENCOUNTER → 2023-10-13 08:45 | Outpatient (BNVA) | payer MEDICARE, MEDICAID, SELFPAY | PROVIDERS: PCP Family Medicine; Visit Provider Podiatrist Foot & Ankle Surgery | DX: B35.1 Tinea unguium (principal); G62.9 Polyneuropathy, unspecified; E11.42 Type 2 diabetes mellitus with diabetic polyneuropathy; M21.611 Bunion of right foot; M21.612 Bunion of left foot; Z79.4 Long term (current) use of insulin | CPT/HCPCS: 99213 ==

== ENCOUNTER → 2023-12-05 09:51 | Outpatient (BNVA) | payer MEDICARE, MEDICAID, SELFPAY | PROVIDERS: PCP Family Medicine; Referring Provider Family Medicine; Visit Provider Specialist | DX: G62.89 Other specified polyneuropathies (principal); F43.10 Post-traumatic stress disorder, unspecified; M79.7 Fibromyalgia | CPT/HCPCS: 82607; 83520; 86160; 86162; 86235; 86255; 86376; 86431; 99204 ==